=== PATIENT | male | born 1960 | race Caucasian/White ===

== ENCOUNTER → 2024-05-04 | Outpatient (CLI) | payer BC, SELFPAY ==
--- NOTE | 2024-05-04 14:36 | XR_ITS ---
Examination: Hand, right 3 views Technique: Hand AP, oblique, lateral 3 views Date and time of exam: May 04, 2024 1450 hours INDICATIONS: Pain and numbness in the right hand beginning 4 days ago FINDINGS: Mild juxta-articular bone demineralization Mild diffuse narrowing joints of the wrist and hand No erosive arthritis No fracture No avascular necrosis IMPRESSION: Mild diffuse osteoarthritis
[2024-05-04 15:35] LABS: Sed Rate (ESR) 17 mm/hr (0-20)
[2024-05-04 15:51] LABS: C-Reactive Protein 0.8 mg/dL (0.0-0.9)
[2024-05-04 16:25] LABS: RA Screen Negative (Negative)
[2024-05-05 01:33] LABS: Ferritin 40 ng/mL (10.5-307.3)
[2024-05-10 06:57] LABS: ANA Screen, IFA NEGATIVE (NEGATIVE)
== END | disposition home or self-care (01) ==
LOC: CDIM 14:23 → COPL 15:00
PROVIDERS: PCP Family Medicine; Referring Provider Nurse Practitioner Family; Visit Provider Radiology Diagnostic Radiology
DX: M19.041 Primary osteoarthritis, right hand (principal); D89.9 Disorder involving the immune mechanism, unspecified
CPT/HCPCS: 36415; 73130; 82728; 85652; 86038; 86140; 86430

== ENCOUNTER → 2024-05-21 | Outpatient (CLI) | payer BC, SELFPAY ==
--- NOTE | 2024-05-21 15:42 | XR_ITS ---
Examination: Bilateral wrists 6 views TECHNIQUE: AP oblique lateral each wrist total 6 views Exam date and time: May 21, 2024 1608 hours INDICATIONS: Bilateral wrist pain beginning 2 weeks ago. FINDINGS: Mild osteopenia. No fracture or dislocation involving either wrist Diffuse mild bilateral osteoarthritis wrists No erosive arthritis Soft tissue vascular calcification IMPRESSION: Diffuse mild bilateral osteoarthritis
== END | disposition home or self-care (01) ==
PROVIDERS: PCP Family Medicine; Referring Provider Nurse Practitioner Gerontology; Visit Provider Nurse Practitioner Gerontology
DX: M19.032 Primary osteoarthritis, left wrist (principal); M19.031 Primary osteoarthritis, right wrist
CPT/HCPCS: 73110

== ENCOUNTER 2025-03-22 13:00 | Outpatient (RCR) | payer BC, SELFPAY ==
--- NOTE | 2025-03-15 15:14 | PTNOTE_ITS ---
PT OP Initial Eval Patient Information Visit Reasons: bilateral hand pain Medical Diagnosis: Left Hand Pain; Right Hand Pain Treatment Dx #1: Bilateral Hand Pain Treatment Dx #2: Bilateral Hand Weakness Start of Care: 03/15/25 Date of Onset: Apr 2024 Smoking Status Smoking Status: Never smoker Initial Assessment Subjective: Pt is a 64 y/o male reports of chronic hand pain and numbness R>L started in Apr 2024. Pt recently completed nerve conduction test but does not know the results. Pt has limitation with gripping, lifting, chores, self care, yardwork, and performing recreational activities. Pt's most recent xray of the hand showed diffuse mild arthritis in the hands Objective: Bilateral Wrist AROM: all motions are WFL Bilateral Wrist MMTs: grossly 4-/5 [employer] Strength: 71 lbs bilaterally Special Test (+) phalen (-) reverse phalen Assessment: Pt demonstrate bilateral wrist pain leading to difficulty with ADLs. Pt will benefit from physical therapy to increase mobility, strength, and work on hand dexterity. 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
--- NOTE | 2025-03-22 13:56 | PT.ODAYNRPT ---
PT Outpatient Daily Note OP Daily Note Outpatient Physical Therapy Treatment Date: 03/22/25 Visit Reasons: bilateral hand pain Subjective: Pt's hand is about the same and it feels clumsy. Sometimes the fingers doesn't work while grabbing an item Objective: Please see flow chart for list of ther ex performed Assessment: tolerate exercises, however, reports of pain with wrist extension stretch. Pt was able to complete instructed reps Plan: Continue with PT Length of Time (minutes) of Treatment: 30 Minutes Procedure Charges Therapeutic Exercise 30 minutes: Yes
== END 2025-03-27 23:59 | disposition home or self-care (01) ==
LOC: CPTX 13:00
PROVIDERS: PCP Nurse Practitioner Gerontology; Referring Provider Nurse Practitioner Gerontology; Visit Provider Nurse Practitioner Gerontology
DX: M79.642 Pain in left hand (principal); M79.641 Pain in right hand; M25.532 Pain in left wrist; M25.531 Pain in right wrist; R53.1 Weakness; R20.0 Anesthesia of skin
CPT/HCPCS: 97110; 97162

== ENCOUNTER 2025-04-19 14:30 | Outpatient (RCR) | payer BC, SELFPAY ==
--- NOTE | 2025-03-29 11:24 | PT.ODAYNRPT ---
PT Outpatient Daily Note OP Daily Note Outpatient Physical Therapy Treatment Date: 03/29/25 Visit Reasons: BILATERAL HAND PAIN Subjective: Pt's hands sore and fatigue after last session. Minimal changes in pain or symptoms lately. Objective: Please see flow chart for list of ther ex performed Assessment: added putty to exercise program today. Pt exhbit fatigue post PT session Plan: Continue with PT Length of Time (minutes) of Treatment: 30 Minutes Procedure Charges Therapeutic Exercise 30 minutes: Yes
--- NOTE | 2025-03-31 12:53 | PT.ODAYNRPT ---
PT Outpatient Daily Note OP Daily Note Outpatient Physical Therapy Treatment Date: 03/31/25 Visit Reasons: BILATERAL HAND PAIN Subjective: Pt reports hand are doing ok, no new concerns. Objective: Please see flow sheet for ther ex ist. Assessment: Continue working on strength within pt tolerance. Plan: Continue with poC. Length of Time (minutes) of Treatment: 30 Minutes Procedure Charges Therapeutic Exercise 30 minutes: Yes
--- NOTE | 2025-04-04 14:08 | PT.ODAYNRPT ---
PT Outpatient Daily Note OP Daily Note Outpatient Physical Therapy Treatment Date: 04/04/25 Visit Reasons: BILATERAL HAND PAIN Subjective: Pt reports hand are doing ok, progress but slow. Objective: Please see flow sheet for ther ex list. Assessment: Progressing strength intervention, pt tolerated well. Plan: Continue with poC. Progress dumbbell weight for wrist strengthening. Length of Time (minutes) of Treatment: 30 Minutes Procedure Charges Therapeutic Exercise 30 minutes: Yes
--- NOTE | 2025-04-07 14:04 | PT.ODAYNRPT ---
PT Outpatient Daily Note OP Daily Note Outpatient Physical Therapy Treatment Date: 04/07/25 Visit Reasons: BILATERAL HAND PAIN Subjective: No new complaints. Objective: Please see flow sheet for ther ex list. Assessment: Progressing resistance and weighted exercise, pt tolerated well indicating progress. Plan: Continue with poC. Length of Time (minutes) of Treatment: 30 Minutes Procedure Charges Therapeutic Exercise 30 minutes: Yes
--- NOTE | 2025-04-13 15:12 | PT.ODAYNRPT ---
PT Outpatient Daily Note OP Daily Note Outpatient Physical Therapy Treatment Date: 04/13/25 Visit Reasons: BILATERAL HAND PAIN Subjective: No new complaints. Objective: Please see flow sheet for ther ex list. Assessment: Progressing interventions as tolerated. Plan: Continue with poC. Length of Time (minutes) of Treatment: 30 Minutes Procedure Charges Therapeutic Exercise 30 minutes: Yes
--- NOTE | 2025-04-19 15:03 | PTNOTE_ITS ---
PT Outpatient Daily Note OP Daily Note Outpatient Physical Therapy Treatment Date: 04/19/25 Visit Reasons: BILATERAL HAND PAIN Subjective: Pt reports B hands feel stronger. Objective: Please see flow sheet for ther ex list. 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 Plan: Continue with pOC. Length of Time (minutes) of Treatment: 30 Minutes Procedure Charges Therapeutic Exercise 30 minutes: Yes
== END 2025-04-27 23:59 | disposition home or self-care (01) ==
LOC: CPTX 14:30
PROVIDERS: PCP Nurse Practitioner Gerontology; Referring Provider Nurse Practitioner Gerontology; Visit Provider Nurse Practitioner Gerontology
DX: M79.642 Pain in left hand (principal); M79.641 Pain in right hand; M25.532 Pain in left wrist; M25.531 Pain in right wrist; R53.1 Weakness; G89.29 Other chronic pain; R20.0 Anesthesia of skin; M19.042 Primary osteoarthritis, left hand; M19.041 Primary osteoarthritis, right hand
CPT/HCPCS: 97110